=== PATIENT | female | born 1965 | race Caucasian/White ===

== ENCOUNTER → 2016-05-05 | Outpatient (CLI) | payer OTHER ==
--- NOTE | 2016-05-05 12:47 | CT ---
CT Scan of the Chest Without Contrast at 0937 hours History: F17.200, nicotine dependence, solitary pulmonary nodule, R91.1. Comparison: Chest x-ray March 2016. Technique: Noncontrast multidetector helical CT imaging was performed from the superior thoracic inl et to the diaphragm. The radiologist manipulated images at the computer workstation. Dose reduction techniques were utilized. Findings: Heart is normal in size with minimal anterior pericardial fluid or thickening. A few benign -appearing paratracheal and aortopulmonary window lymph nodes. Calcified infracarinal lymph node reyes uring 11 mm. Several calcified granulomata in the left hilum. Multiple calcified pulmonary nodules th roughout both lungs with the largest in superior segment of the left lower lobe measuring 12 mm, supe rior segment of the right lower lobe measuring 8 mm, image 70 of series 3. Also in the anterior segme nt of the left upper lobe there is a 5 mm calcified granuloma. No evidence of suspicious noncalcified pulmonary nodules. Pleuroparenchymal scarring bilateral lower lobes. Centrilobular emphysema through out both lungs especially bilateral upper lobes with destruction of pulmonary parenchyma. No evidence of suspicious pulmonary nodules. The chest x-ray finding corresponds to a calcified granuloma in the superior segment of the left lower lobe. Moderate degenerative disk disease mid to lower thoracic sp ine. Hyperinflation of the lungs. Linear scarring in the right lower lobe. No pneumothorax or pleural effusion. No evidence of destructive osseous lesions. Impression: 1. Severe emphysema worse in the bilateral upper lobes. 2. Multiple calcified granulomata in the mediastinum, left hilum, and bilateral lungs which correspon d to the chest x-ray finding. 3. No aortic aneurysm, cardiomegaly, pleural effusion or pneumothorax. 4. No suspicious pulmonary nodules or masses.
== END ==
LOC: CIMAGING 09:29
PROVIDERS: ATTEND Internal Medicine
DX: J43.8 Other emphysema (principal); J98.59 Other diseases of mediastinum, not elsewhere classified; F17.200 Nicotine dependence, unspecified, uncomplicated
CPT/HCPCS: 71250-PO